=== PATIENT | male | born 1960 | race African-American/Black ===

== ENCOUNTER 2018-08-09 09:04 | Emergency (ER) | payer SELFPAY ==
[2018-08-09] MEDS ORDERED: LOSA-51 PO (09:14)
[2018-08-09] MEDS ORDERED: AMLO-111 PO (09:14)
[2018-08-09] MEDS ORDERED: NS(*) 0.9% 1000 ML BAG 1,000 ML IV ONE ×2 (09:25→10:50)
[2018-08-09 09:34] LABS: PLATELET COUNT, AUTOMATED 262 K/uL (150-450)
[2018-08-09] MEDS ORDERED: ONDANSETRON 4 MG/2 ML VIAL IVP ONE (09:35)
--- NOTE | 2018-08-09 09:38 | ER Report ---
History and Physical Time Seen By MD: 09:20 Hx. 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 He states that he has been feeling ill since . Patient notes that he first developed nausea and body aches. This progressed into feeling of fever, vomiting 6, nonbloody or bilious, diarrhea 1, intermittent crampy abdominal pain, continued nausea, mild headache, fatigue. He states that he was at a truck stop today when he felt lightheaded and sweaty, so presented here. He has tried NyQuil and Motrin for his symptoms. REVIEW OF SYSTEMS: Constitutional: above Eyes: No discharge. ENT: mild sore throat after vomiting Cardiovascular: No chest pain, no palpitations. Respiratory: mild shortness of breath, occ nonproductive cough Gastrointestinal: above Genitourinary: no dysuria Musculoskeletal: myalgias throughout Skin: No rashes. Neurological: mild trejo as above Remainder of the 14 system rev: Yes Allergies: Coded Allergies: No Known Drug Allergies (Unverified , 08/09/18) Home Meds Active Scripts Levofloxacin 500 Mg Tab (LEVAQUIN 500 MG TAB) 500 Mg Tablet, 500 MG PO QDAY for 7 Days, #7 TAB Prov:MIKE ANGELO MD 08/09/18 Reported Medications Losartan/Hydrochlorothiazide (LOSARTAN-HCTZ 50-12.5 MG TAB) 1 Each Tablet, 1 EACH PO QDAY 08/09/18 Amlodipine Besylate (AMLODIPINE BESYLATE) 5 Mg Tablet, TAB PO QDAY, TAB 08/09/18 Reviewed Nurses Notes: Yes Constitutional Vital Sign - Last 24 Hours 08/09/18 08/09/18 08/09/18 08/09/18 09:10 09:17 09:30 10:00 Temp 97.3 Pulse 112 100 114 Resp 20 11 B/P (MAP) 143/99 135/106 (116) 148/105 (119) Pulse Ox 90 93 86 O2 Delivery Room Air O2 Flow Rate 1.0 08/09/18 08/09/18 10:30 11:00 Pulse 104 98 B/P (MAP) 136/85 (102) 146/98 (114) Pulse Ox 97 93 Intake and Output 08/09/18 08/09/18 08/10/18 15:00 23:00 07:00 Intake Total 2100 ml Balance 2100 ml Physical Exam General Appearance: The patient is alert, has no immediate need for airway protection and no signs of toxicity. Eyes: Pupils equal and round no pallor or injection. ENT, Mouth: Mucous membranes are moist. OP WNL Respiratory: Tachypneic, lungs ctab Cardiovascular: tachycardic. No murmur Gastrointestinal: Abdomen is soft and non tender, no masses, bowel sounds no rmal. Neurological: alert, moves all ext Skin: Warm and dry, no rashes. Musculoskeletal: Extremities are nontender, nonswollen and have full range of motion. DIFFERENTIAL DIAGNOSIS: After history and physical exam differential diagnosis was considered for sepsis, acs, abdominal infection, or other emergent etiology of symptoms. Medical Decision Making Data Points Result Diagram: 08/09/18 0915 08/09/18 0915 Laboratory Hematology Test 08/09/18 00:00 08/09/18 09:15 08/09/18 10:04 Troponin I < 0.012 ng/ml Red Blood Count 5.05 M/uL (4.00-5.60) Mean Corpuscular Volume 87.5 fL (80.0-96.0) Mean Corpuscular Hemoglobin 29.1 pg (26.0-33.0) Mean Corpuscular Hemoglobin Concent 33.3 g/dL (32.0-36.0) Red Cell Distribution Width 14.1 % (11.5-14.5) Mean Platelet Volume 6.7 fL (7.2-11.1) Neutrophils (%) (Auto) 82.4 % (39.4-72.5) Lymphocytes (%) (Auto) 11.7 % (17.6-49.6) Monocytes (%) (Auto) 5.4 % (4.1-12.4) Eosinophils (%) (Auto) 0.0 % (0.4-6.7) Basophils (%) (Auto) 0.5 % (0.3-1.4) Nucleated RBC Relative Count (auto) 0.0 /100WBC Neutrophils # (Auto) 15.6 K/uL (2.0-7.4) Lymphocytes # (Auto) 2.2 K/uL (1.3-3.6) Monocytes # (Auto) 1.0 K/uL (0.3-1.0) Eosinophils # (Auto) 0.0 K/uL (0.0-0.5) Basophils # (Auto) 0.1 K/uL (0.0-0.1) Nucleated RBC Absolute Count (auto) 0.00 K/uL Sodium Level 136 mmol/L (137-145) Potassium Level 3.2 mmol/L (3.5-5.0) Chloride Level 99 mmol/L (98-107) Carbon Dioxide Level 23 mmol/L (22-30) Blood Urea Nitrogen 17 mg/dl (9-21) Creatinine 1.30 mg/dl (0.66-1.25) Glomerular Filtration Rate Calc 56.9 Random Glucose 136 mg/dl (75-110) Calcium Level 8.9 mg/dl (8.4-10.2) Total Bilirubin 2.4 mg/dl (0.2-1.3) Aspartate Amino Transf (AST/SGOT) 26 U/L (0-35) Alanine Aminotransferase (ALT/SGPT) 10 U/L (0-56) Alkaline Phosphatase 108 U/L (0-126) Total Protein 8.0 g/dl (6.3-8.2) Albumin 4.0 g/dl (3.5-5.0) Influenza Virus Type A (PCR) Negative (NEGATIVE) Influenza Virus Type B (PCR) Negative (NEGATIVE) Urine Color [place]ki Urine Clarity Slightly-cloudy Urine pH 5.0 pH (4.8-9.5) Urine Specific [place] 1.020 Urine Protein 100 mg/dL (NEGATIVE) Urine Glucose (UA) Negative mg/dL (NEGATIVE) Urine Ketones Trace mg/dL (NEGATIVE) Urine Blood Small (NEGATIVE) Urine Nitrite Positive (NEGATIVE) Urine Bilirubin Small (NEGATIVE) Urine Urobilinogen 4.0 mg/dL (0.2-1.9) Urine Leukocyte Esterase Small (NEGATIVE) Urine RBC 1 /HPF (0-2/HPF) Urine WBC 122 /HPF (0-5/HPF) Urine Squamous Epithelial Cells None /LPF (</=FEW) Urine Bacteria Many /HPF (NONE-FEW) Urine Mucus Few /HPF (NONE-FEW) Chemistry Test 08/09/18 00:00 08/09/18 09:15 08/09/18 10:04 Troponin I < 0.012 ng/ml White Blood Count 18.9 k/uL (4.5-11.0) Red Blood Count 5.05 M/uL (4.00-5.60) Hemoglobin 14.7 g/dL (14.0-18.0) Hematocrit 44.2 % (42.0-52.0) Mean Corpuscular Volume 87.5 fL (80.0-96.0) Mean Corpuscular Hemoglobin 29.1 pg (26.0-33.0) Mean Corpuscular Hemoglobin Concent 33.3 g/dL (32.0-36.0) Red Cell Distribution Width 14.1 % (11.5-14.5) Platelet Count 262 K/uL (150-450) Mean Platelet Volume 6.7 fL (7.2-11.1) Neutrophils (%) (Auto) 82.4 % (39.4-72.5) Lymphocytes (%) (Auto) 11.7 % (17.6-49.6) Monocytes (%) (Auto) 5.4 % (4.1-12.4) Eosinophils (%) (Auto) 0.0 % (0.4-6.7) Basophils (%) (Auto) 0.5 % (0.3-1.4) Nucleated RBC Relative Count (auto) 0.0 /100WBC Neutrophils # (Auto) 15.6 K/uL (2.0-7.4) Lymphocytes # (Auto) 2.2 K/uL (1.3-3.6) Monocytes # (Auto) 1.0 K/uL (0.3-1.0) Eosinophils # (Auto) 0.0 K/uL (0.0-0.5) Basophils # (Auto) 0.1 K/uL (0.0-0.1) Nucleated RBC Absolute Count (auto) 0.00 K/uL Glomerular Filtration Rate Calc 56.9 Calcium Level 8.9 mg/dl (8.4-10.2) Total Bilirubin 2.4 mg/dl (0.2-1.3) Aspartate Amino Transf (AST/SGOT) 26 U/L (0-35) Alanine Aminotransferase (ALT/SGPT) 10 U/L (0-56) Alkaline Phosphatase 108 U/L (0-126) Total Protein 8.0 g/dl (6.3-8.2) Albumin 4.0 g/dl (3.5-5.0) Influenza Virus Type A (PCR) Negative (NEGATIVE) Influenza Virus Type B (PCR) Negative (NEGATIVE) Urine Color Mikki Urine Clarity Slightly-cloudy Urine pH 5.0 pH (4.8-9.5) Urine Specific [place] 1.020 Urine Protein 100 mg/dL (NEGATIVE) Urine Glucose (UA) Negative mg/dL (NEGATIVE) Urine Ketones Trace mg/dL (NEGATIVE) Urine Blood Small (NEGATIVE) Urine Nitrite Positive (NEGATIVE) Urine Bilirubin Small (NEGATIVE) Urine Urobilinogen 4.0 mg/dL (0.2-1.9) Urine Leukocyte Esterase Small (NEGATIVE) Urine RBC 1 /HPF (0-2/HPF) Urine WBC 122 /HPF (0-5/HPF) Urine Squamous Epithelial Cells None /LPF (</=FEW) Urine Bacteria Many /HPF (NONE-FEW) Urine Mucus Few /HPF (NONE-FEW) Urinalysis Test 08/09/18 10:04 Urine Color Mikki Urine Clarity Slightly-cloudy Urine pH 5.0 pH (4.8-9.5) Urine Specific [place] 1.020 Urine Protein 100 mg/dL (NEGATIVE) Urine Glucose (UA) Negative mg/dL (NEGATIVE) Urine Ketones Trace mg/dL (NEGATIVE) Urine Blood Small (NEGATIVE) Urine Nitrite Positive (NEGATIVE) Urine Bilirubin Small (NEGATIVE) Urine Urobilinogen 4.0 mg/dL (0.2-1.9) Urine Leukocyte Esterase Small (NEGATIVE) Urine RBC 1 /HPF (0-2/HPF) Urine WBC 122 /HPF (0-5/HPF) Urine Squamous Epithelial Cells None /LPF (</=FEW) Urine Bacteria Many /HPF (NONE-FEW) Urine Mucus Few /HPF (NONE-FEW) EKG/Imaging EKG Interpretation 12 lead EKG: Rhythm: sinus tachycardia [place]: left QRS: normal ST segments: inverted !, flat II, inverted AvL, no other sig st elevations or dep sinus tachycardia with PVC's, twi in 1, avl [ ] Monitor Interpretation: Sinus Tachycardia ED Course/Re-evaluation ED Course Pt presents with fever, chills and dyspnea initially concerning for pulmonary etiology of symptoms, however testing reveals e/o uti. Pt does not have sign of overt pyelonephritis but given fever and systemic sympptoms this is c/w complicated uti. Pt denies sti history, denies sexual intercourse in past year, denies gu lesions, purulent drainage, or other concerns for STI; therefore will initiate tx for most likely gm neg uti. Pt improved in ED; also has sgs/symtpoms c/w viral etiology. Understands SRP's. Decision to Disposition Date: Aug 09, 2018 Decision to Disposition Time: 13:30 Depart Departure Latest Vital Signs Vital Signs Date Time Temp Pulse Resp B/P (MAP) Pulse Ox O2 Delivery O2 Flow Rate FiO2 08/09/18 11:00 98 146/98 (114) 93 08/09/18 09:30 11 08/09/18 09:17 1.0 08/09/18 09:10 97.3 Room Air Impression: Primary Impression: Urinary tract infection Additional Impressions: Renal insufficiency Elevated bilirubin Condition: Improved Disposition: HOME OR SELF-CARE New Scripts Levofloxacin 500 Mg Tab (LEVAQUIN 500 MG TAB) 500 Mg Tablet 500 MG PO QDAY for 7 Days, #7 TAB Prov: MIKE ANGELO MD 08/09/18 Patient Instructions: Urinary Tract Infection in Men (DC) Additional Instructions: As we discussed, you must follow up with a primary physician to recheck your kidney function, elevated bilirubin, and make sure your infections clear up (you appear to have both a flu-like virus and a urinary infection). Please return immediately here or to the closest emergency department if you feel worse, are n ot tolerating fluids, or for any concerns. Problem Qualifiers Primary Impression: Urinary tract infection Urinary tract infection type: acute cystitis Hematuria presence: without hematuria Qualified Codes: N30.00 - Acute cystitis without hematuria MIKE ANGELO MD Aug 09, 2018 09:38
--- NOTE | 2018-08-09 09:42 | EKG ---
FACILITY: [facility] PATIENT NAME: DEB CAMACHO : [id number] MR: [id number] V: [id number] EXAM DATE: ORDERING PHYSICIAN: MIKE ANGELO TECHNOLOGIST: RE Test Reason : WEAKNESS Blood Pressure : / mmHG Vent. Rate : 113 BPM Atrial Rate : 113 BPM P-R Int : 164 ms QRS Dur : 088 ms QT Int : 320 ms P-R-T Axes : 001 -30 061 degrees QTc Int : 438 ms Sinus tachycardia with occasional premature ventricular complexes Left axis deviation Minimal voltage criteria for LVH, may be normal variant Possible Lateral infarct , age undetermined T inversion consistent with lateral ischemia vs normal variant No previous ECGs available Confirmed by MARIA DOLORES HOOK ([id number]) on 08/09/2018 11:00:59 AM Referred By: PETEY Confirmed By:MARIA DOLORES HOOK
--- NOTE | 2018-08-09 10:12 | RADIOLOGY IMAGING REPORT ---
FACILITY: [facility] - [place] PATIENT NAME: Armando Cedeno : 1960 MR: [id number] V: [id number] EXAM DATE: ORDERING PHYSICIAN: MIKE ANGELO TECHNOLOGIST: Location: [facility] [place] Patient: Armando Cedeno : 1960 Visit/Account:[id number] Date of Sevice: 08/09/2018 2 VIEWS CHEST INDICATION: Dyspnea COMPARISON: None available FINDINGS: Heart size within normal limits. There is minimal linear perihilar opacities without alveolar consolidation, effusion or pneumothorax. No acute bony finding. IMPRESSION: 1. Central interstitial changes suspicious for a viral bronchitis/atypical pneumonitis. Report Dictated By: Tommie Escobar MD at 08/09/2018 10:07 AM Report E-Signed By: Tommie Escobar MD at 08/09/2018 10:09 AM WSN:[id number]
[2018-08-09] MEDS ORDERED: cefTRIAXone(*) 1 GM VIAL 1 GM in NS(*) 0.9% 100 ML ADDVANT BAG 100 ML IVPB ONE (10:40)
[2018-08-09] MEDS ORDERED: ACETAMINOPHEN 325 MG TAB PO ONE (10:50)
[2018-08-09 11:00] VITALS: BP 146/98
[2018-08-09] MEDS ORDERED: PROCHLORPERAZINE MAL 5 MG TAB PO ONE (12:40)
[2018-08-09] MEDS ORDERED: LEVO-85 PO (13:31)
== END 2018-08-09 13:44 | disposition home or self-care (01) ==
LOC: ER 09:27
DX: N30.00 Acute cystitis without hematuria (principal); N28.9 Disorder of kidney and ureter, unspecified; E80.7 Disorder of bilirubin metabolism, unspecified; R00.0 Tachycardia, unspecified
CPT/HCPCS: 71046; 81001; 84484; 85025; 87077; 87088; 87186; 87502; 93005; 96361; 96374; 96375; 99284; J0696; J2405; J7030; J7050; Q0164; 82040; 82247; 82310; 82374; 82435; 82565; 82947; 84075; 84132; 84155; 84295; 84450; 84460; 84520